=== PATIENT | female | born 1980 | race Caucasian/White ===

== ENCOUNTER 2022-01-02 06:56 | Emergency (ER) | payer OTHER ==
[~2022-01-02] VITALS: Ht 157.5 cm; Wt 60.4 kg
[2022-01-02] MEDS ORDERED: SODIUM BICARB ADULT 8.4% 50 MEQ/50 ML DISP.SYRIN. ONE (07:00)
[2022-01-02] MEDS ORDERED: EPINEPHrine SYRINGE 1 MG/10 ML SYRINGE. ONE (07:00)
[2022-01-02] MEDS ORDERED: CALCIUM CHLORIDE 1,000 MG/10 ML DISP.SYRIN ONE (07:00)
[2022-01-02] MEDS ORDERED: AMIODARONE 150 MG/3 ML VIAL ONE (07:00)
[2022-01-02 07:19] LABS: BASE EXCESS COOX -12 mmol/L (-3-3); HCO3 COOX 15 mmol/L (21-28); METHEMOGLOBIN 0.5 % (0.0-1.9); OXYHEMOGLOBIN 87.5 %; PCO2 COOX 42 mmHg (35-46); PO2 COOX 69 mmHg (75-108); SAT O2 COOX 88 % (92-99)
[2022-01-02] MEDS ORDERED: VASOPRESSIN - VASOSTRICT 20 UNIT in IV DEXTROSE 5% 100ML 100 ML IV ONE (07:30)
[2022-01-02] MEDS ORDERED: AMIODARONE 450 MG in IV DEXTROSE 5% 250 ML IV ONE (07:30)
[2022-01-02 07:32] LABS: BASO # 0.1 x10^3/uL (0.0-0.2); BASO % 1 % (0-3); EOS # 0.1 x10^3/uL (0.0-0.7); EOS % 1 % (0-3); HEMATOCRIT 42.1 % (36.0-47.0); HEMOGLOBIN 13.8 g/dL (12.0-15.5); LYMPH # 5.6 x10^3/uL (1.0-4.8); LYMPH % 52 % (24-48); MEAN CORPUSCULAR HEMOGLOBIN 31 pg (25-35); MEAN CORPUSCULAR HGB CONC 33 g/dL (31-37); MEAN CORPUSCULAR VOLUME 93 fL (79-100); MONO # 0.4 x10^3/uL (0.0-1.1); MONO % 4 % (0-9); NEUT # 4.6 x10^3/uL (1.8-7.7); NEUT % 43 % (31-73); PLATELET COUNT 355 x10^3/uL (140-400); RED BLOOD COUNT 4.52 x10^6/uL (3.50-5.40); RED CELL DISTRIBUTION WIDTH 13.7 % (11.5-14.5); WHITE BLOOD COUNT 10.8 x10^3/uL (4.0-11.0)
[2022-01-02 07:39] LABS: PROTHROMBIN TIME PATIENT 16.8 SEC (11.7-14.0)
--- NOTE | 2022-01-02 07:39 | RAD ---
AP chest. HISTORY: Post code, intubated AP view was taken of the chest. Endotracheal tube is in good position. NG tube extends into the stoma ch. There is hazy lung disease most prominent in the left upper lobe from developing pulmonary edema although aspiration or pulmonary hemorrhage could have this pattern. There is no pneumothorax or pleu ral effusion. IMPRESSION: 1. Endotracheal tube in good position. 2. NG tube extends into the stomach. 3. Hazy mainly upper lobe lung disease possible pulmonary edema. Electronically signed by: Josh Mcbride MD (01/02/2022 7:37 AM) [facility]
[2022-01-02 07:42] LABS: CALCIUM 8.9 mg/dL (8.5-10.1); CREATININE 1.1 mg/dL (0.6-1.0); POTASSIUM 3.2 mmol/L (3.5-5.1)
--- NOTE | 2022-01-02 07:44 | ED.ADGEN ---
General Adult EDM: Chief Complaint: CPR/FULL ARREST HPI: HPI: Patient is a 41 year old female brought in by EMS for cardiac arrest. History provided by patient's that they were staying in a hotel room, he states he woke up when she was urinating on his leg and then started having seizure- like activity. Patient states he had tried to get her up but she was " weight" and put her on the ground to start CPR and called 911. He states she has a history of seizures as a child, but none recently. No significant medical history. Has a history of alcohol use but denies anything currently. Per EMS she was in [place] and they got ROSC after about 5 minutes but then lost pulses again just prior to arriving at the emergency department. He states that she was incontinent but did not vomit. He says that have the a.m. was the last time he saw her before he fell asleep and she had been acting normally. Denies any known history of head trauma. Review of Systems: Review of Systems: All other systems within normal limits except for as noted in the HPI Current Medications: Current Medications Medications (Trade) Dose Ordered Sig/Abdiaziz Start Time Stop Time Status Last Admin Dose Admin Amiodarone HCl 450 mg/Dextrose 259 ml @ 33 mls/hr 1X ONCE 01/02/22 07:30 01/02/22 15:20 01/02/22 07:51 34.533 MLS/HR Info (CONTRAST GIVEN -- Rx MONITORING) 1 each PRN DAILY PRN 01/02/22 08:45 01/04/22 08:44 Iohexol (Omnipaque 300 Mg/ml) 75 ml 1X ONCE 01/02/22 08:30 01/02/22 08:31 DC 01/02/22 08:42 75 ML Lorazepam (Ativan Inj) 4 mg 1X ONCE 01/02/22 08:45 01/02/22 08:46 DC 01/02/22 08:38 4 MG Magnesium Sulfate/ Dextrose 100 ml @ 100 mls/hr 1X ONCE 01/02/22 07:45 01/02/22 08:44 DC 01/02/22 08:31 100 MLS/HR Propofol (Diprivan) 200 mg 1X ONCE 01/02/22 09:15 01/02/22 09:16 DC 01/02/22 09:17 200 MG Ringer's Solution 1,000 ml @ 200 mls/hr 1X ONCE 01/02/22 08:15 01/02/22 13:14 Sodium Chloride 500 ml @ 50 mls/hr 1X ONCE 01/02/22 09:00 01/02/22 18:59 01/02/22 08:53 50 MLS/HR Vasopressin 20 unit/Dextrose 101 ml @ 11.882 mls/ hr 1X ONCE 01/02/22 07:30 01/02/22 15:59 01/02/22 07:23 11.882 MLS/HR Allergies: Allergies: Allergies Coded Allergies Type Severity Reaction Last Updated Verified No Known Drug Allergies 01/02/22 No Physical Exam: PE: Constitutional: Well developed, well nourished HENT: Normocephalic, bilateral external ears normal, nose normal, ecchymosis and swelling of left upper orbit. [] Eyes: Pupils 4 mm and fixed conjunctiva normal, no discharge. [] Neck: No rigidity, supple, no stridor. [] Cardiovascular: Cardiac arrest, ongoing CPR Lungs & Thorax: Coarse bilateral breath sounds, arrived being ventilated by BVM Abdomen: Soft, nondistended. Skin: Warm, dry, no erythema, no rash. [] Back: Unremarkable Extremities: No deformities, no lower extremity edema [] Neurologic: GCS 3 Psychologic: Unable to assess Current Patient Data: Labs: Laboratory Tests Test 01/02/22 07:11 01/02/22 07:15 01/02/22 07:40 01/02/22 07:48 O2 Saturation 88 % (92-99) L Arterial Blood pH 7.18 (7.35-7.45) *L Arterial Blood pCO2 at Patient Temp 42 mmHg (35-46) Arterial Blood pO2 at Patient Temp 69 mmHg (75-108) L Arterial Blood HCO3 15 mmol/L (21-28) L Arterial Blood Base Excess -12 mmol/L (-3-3) L Oxyhemoglobin 87.5 % Methemoglobin 0.5 % (0.0-1.9) Carbon Monoxide, Quantitative 0.3 % (0.0-1.9) FiO2 100% vent White Blood Count 10.8 x10^3/uL (4.0-11.0) Red Blood Count 4.52 x10^6/uL (3.50-5.40) Hemoglobin 13.8 g/dL (12.0-15.5) Hematocrit 42.1 % (36.0-47.0) Mean Corpuscular Volume 93 fL (79-100) Mean Corpuscular Hemoglobin 31 pg (25-35) Mean Corpuscular Hemoglobin Concent 33 g/dL (31-37) Red Cell Distribution Width 13.7 % (11.5-14.5) Platelet Count 355 x10^3/uL (140-400) Neutrophils (%) (Auto) 43 % (31-73) Lymphocytes (%) (Auto) 52 % (24-48) H Monocytes (%) (Auto) 4 % (0-9) Eosinophils (%) (Auto) 1 % (0-3) Basophils (%) (Auto) 1 % (0-3) Neutrophils # (Auto) 4.6 x10^3/uL (1.8-7.7) Lymphocytes # (Auto) 5.6 x10^3/uL (1.0-4.8) H Monocytes # (Auto) 0.4 x10^3/uL (0.0-1.1) Eosinophils # (Auto) 0.1 x10^3/uL (0.0-0.7) Basophils # (Auto) 0.1 x10^3/uL (0.0-0.2) Platelet Estimate Pending Prothrombin Time 16.8 SEC (11.7-14.0) H Prothrombin Time INR 1.4 (0.8-1.1) H Sodium Level 139 mmol/L (136-145) Potassium Level 3.2 mmol/L (3.5-5.1) L Chloride Level 101 mmol/L (98-107) Carbon Dioxide Level 21 mmol/L (21-32) Anion Gap 17 (6-14) H Blood Urea Nitrogen 13 mg/dL (7-20) Creatinine 1.1 mg/dL (0.6-1.0) H Estimated GFR (Cockcroft-Gault) 55.0 BUN/Creatinine Ratio 12 (6-20) Glucose Level 150 mg/dL (70-99) H Lactic Acid Level 7.2 mmol/L (0.4-2.0) *H Calcium Level 8.9 mg/dL (8.5-10.1) Phosphorus Level 8.0 mg/dL (2.6-4.7) H Magnesium Level 3.0 mg/dL (1.8-2.4) H Total Bilirubin 0.8 mg/dL (0.2-1.0) Aspartate Amino Transferase (AST) 112 U/L (15-37) H Alanine Aminotransferase (ALT) 112 U/L (14-59) H Alkaline Phosphatase 66 U/L (46-116) Troponin I High Sensitivity 45 ng/L (4-50) AQ-Cik-E-Type Natriuretic Peptide 632 pg/mL (0-124) H Total Protein 7.6 g/dL (6.4-8.2) Albumin 4.2 g/dL (3.4-5.0) Albumin/Globulin Ratio 1.2 (1.0-1.7) Ethyl Alcohol Level < 10 mg/dL (0-10) Urine Collection Type Unknown Urine Color Straw Urine Clarity Clear Urine pH 7.0 (<5.0-8.0) Urine Specific [place] 1.020 (1.000-1.030) Urine Protein 100 mg/dL (NEG-TRACE) Urine Glucose (UA) 100 mg/dL (NEG) Urine Ketones (Stick) Trace mg/dL (NEG) Urine Blood Moderate (NEG) Urine Nitrite Negative (NEG) Urine Bilirubin Negative (NEG) Urine Urobilinogen Dipstick 0.2 mg/dL (0.2 mg/dL) Urine Leukocyte Esterase Negative (NEG) Urine RBC 6-10 /HPF (0-2) Urine WBC 0 /HPF (0-4) Urine Squamous Epithelial Cells Few /LPF Urine Bacteria Few /HPF (0-FEW) Urine Opiates Screen Neg (NEG) Urine Methadone Screen Neg (NEG) Urine Barbiturates Neg (NEG) Urine Phencyclidine Screen Neg (NEG) Urine Amphetamine/Methamphetamine Neg (NEG) Urine Benzodiazepines Screen Neg (NEG) Urine Cocaine Screen Pos (NEG) Urine Cannabinoids Screen Neg (NEG) Urine Ethyl Alcohol Neg (NEG) POC Urine HCG, Qualitative Hcg negative (Negative) Laboratory Tests 01/02/22 07:15 Laboratory Tests 01/02/22 07:15 Vital Signs: Vital Signs Date Time Temp Pulse Resp B/P (MAP) Pulse Ox O2 Delivery O2 Flow Rate FiO2 01/02/22 08:56 98 Ventilator EKG: EK: Sinus tachycardia, heart rate 150 bpm, right axis deviation, lateral and anterior settable demand ischemia. 0743: Sinus tachycardia, PACs deviation, narrow complexes, resolution of ST depression [] Heart Score: C/O Chest Pain: N/A Risk Factors: Risk Factors: DM, Current or recent (<one month) smoker, HTN, HLP, family history of CAD, obesity. Risk Scores: Score 0 - 3: 2.5% MACE over next 6 weeks - Discharge Home Score 4 - 6: 20.3% MACE over next 6 weeks - Admit for Clinical Observation Score 7 - 10: 72.7% MACE over next 6 weeks - Early Invasive Strategies Radiology/Procedures: Radiology/Procedures: [facility] [address] [place] [address] IMAGING REPORT Signed PATIENT: BERTA ENGLAND ACCOUNT: [id number] : 1980 LOCATION: ER AGE: 41 SEX: F EXAM STATUS: PRE ER ORD. PHYSICIAN: YASMIN TURNER DO REASON: post code, intubation PROCEDURE: PORTABLE CHEST 1V AP chest. HISTORY: Post code, intubated AP view was taken of the chest. Endotracheal tube is in good position. NG tube extends into the stomach. There is hazy lung disease most prominent in the left upper lobe from developing pulmonary edema although aspiration or pulmonary hemorrhage could have this pattern. There is no pneumothorax or pleural effusion. IMPRESSION: 1. Endotracheal tube in good position. 2. NG tube extends into the stomach. 3. Hazy mainly upper lobe lung disease possible pulmonary edema. Electronically signed by: Josh Mcbride MD (01/02/2022 7:37 AM) [facility] DICTATED and SIGNED BY: JOSH MCBRIDE MD DATE: 01/02/22 0735 [][facility] [id number] [place] [address] IMAGING REPORT Signed PATIENT: BERTA CRAIN ACCOUNT: [id number] : 1980 LOCATION: ER AGE: 41 SEX: F EXAM STATUS: REG ER ORD. PHYSICIAN: LIBBY DURAN MD REASON: cardiac arrest, head injury PROCEDURE: CT HEAD WO CONTRAST PQRS Compliance Statement: One or more of the following individualized dose reduction techniques were utilized for this examination: 1. Automated exposure control 2. Adjustment of the mA and/or kV according to patient size 3. Use of iterative reconstruction technique CT head without contrast 01/02/2022 8:10 AM INDICATION: Cardiac arrest, head injury COMPARISON: None available TECHNIQUE: Multiple axial CT images of the head were obtained from skull base through the vertex without intravenous contrast. FINDINGS: Head: There is diffuse subarachnoid hemorrhage identified along the midline falx in the suprasellar cistern, and bilateral sylvian fissures. There is intraventricular hemorrhage identified within the fourth ventricle. The occipital horns of the lateral ventricles appear effaced. No definite hydrocephalus. There is diffuse cerebral edema with effacement of the sulci which could result in pseudosubarachnoid hemorrhage. The tonsils extend below the level of foramen magnum by 6 mm suggestive of tonsillar herniation. No significant midline shift. Visualized portions of the orbits are normal. Mild mucosal thickening of the maxillary sinuses. Moderate mucosal thickening of the ethmoid air cells and right sphenoid sinus. Middle ear cavities are intact. Mastoid air cells are well aerated. Scalp and calvaria are normal. IMPRESSION: Diffuse subarachnoid hemorrhage with intraventricular hemorrhage, Garcia grade 4. No associated hydrocephalus. Findings favor aneurysmal subarachnoid hemorrhage and further evaluation with CT angiography or catheter angiography is recommended. Diffuse cerebral edema with sulcal effacement and cerebellar tonsillar herniation. Degree of sulcal effacement and effacement of the basal cisterns could result in a pseudosubarachnoid hemorrhage appearance, although degree of hyperattenuation within the sylvian fissures and suprasellar cistern favors aneurysmal subarachnoid hemorrhage. FOR INTERNAL CODING PURPOSES Critical result: Findings discussed with LIBBY DURAN MD at 01/02/2022 8:23 AM. RESULT CODE: (C) Electronically signed by: Mik Jones MD (01/02/2022 8:32 AM) [id number] DICTATED and SIGNED BY: MIK JONES MD DATE: 01/02/22 0822 [facility] [address] [place] [address] IMAGING REPORT Signed PATIENT: BERTA CRAIN ACCOUNT: [id number] : 1980 LOCATION: ER AGE: 41 SEX: F EXAM STATUS: REG ER ORD. PHYSICIAN: LIBBY DURAN MD REASON: SAH PROCEDURE: CT ANGIOGRAPHY HEAD AND NECK CTA HEAD AND NECK W/WO CONTRAST History:Reason: SAH / Spl. Instructions: omni 300 75ml / History: Technique: After bolus of intravenous contrast, volumetric CT data acquisition was acquired of the head and neck. Multiplanar reconstruction images to include MIP and 3-D reconstruction images are submitted. Exposure: One or more of the following individualized dose reduction techniques were utilized for this examination: 1. Automated exposure control 2. Adjustment of the mA and/or kV according to patient size 3. Use of iterative reconstruction technique. Comparison: January 02, 2022 Any determination of stenosis is based on NASCET criteria. Head CTA: ICA: No stenosis or occlusion. Tiny right posterior communicating artery origin infundibulum or aneurysm. MCA: No stenosis, occlusion or aneurysm. DELVIS: Anterior communicating artery aneurysm measures 4.3 mm. ELEVATOR ADJUSTER: No stenosis, occlusion or aneurysm. Basilar artery: No stenosis, occlusion or aneurysm. Fenestrated basilar artery. Distal vertebral arteries: No stenosis, occlusion or aneurysm. Diffuse subarachnoid hemorrhage with cerebral edema and herniation better characterized on noncontrast examination. CT angiogram neck: Aortic arch: Conventional arch anatomy. Common carotid arteries: No stenosis, occlusion or dissection. Internal carotid arteries: No stenosis, occlusion or dissection. External carotid arteries: Patent Vertebral arteries: No stenosis, occlusion or dissection. Multifocal ground glass opacities and patchy opacities with centrilobular distribution bilaterally. Endotracheal and enteric tubes noted. Soft tissues appear normal. Bones: Congenital fusion T2-T3. Mild cervical spondylosis. Impression: 1. 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 2. Tiny internal carotid artery posterior communicating artery origin aneurysm or infundibulum. 3. Bilateral pulmonary patchy opacities and groundglass opacities, may represent pulmonary edema or pneumonia. FOR INTERNAL CODING PURPOSES Critical result: Findings discussed with LIBBY DURAN MD at 01/02/2022 9:13 AM. RESULT CODE: (C) Electronically signed by: Raf Ricketts DO (01/02/2022 9:19 AM) [id number] DICTATED and SIGNED BY: RAF RICKETTS DO DATE: 01/02/2204 Impression: Total critical care time: 90 The time involved in the performance of separately reportable/billable procedures was not counted toward critical care time. Due to a high probability of clinically significant, life-threatening deterioration the patient required a high level of care to intervene emergently and I personally spent this critical time directly and personally managing the patient. The critical care time included obtaining a history, examination of the patient, assessment of vital signs, ordering and review of studies, arranging urgent treatment with development of a management plan, evaluation of patient's response to treatment, frequent reassessment, and discussions with other providers and/or family members. Patient was intubated in emergent fashion and no consent was obtained. Patient was not sedated and paralyzed []. A glide scope with a size 3 blade was used, cords were visualized and a size 7.0 endotracheal tube was placed during for attempt. Endotracheal tube cuff was inflated and confirmation established by visualization of the cords passing the tubes, bilateral breath sounds, color change, and chest x-ray. Patient initially came in in cardiac arrest receiving CPR. Obtained ROSC. Patient was initially tachycardic and hypotensive, started on norepinephrine and given bicarb and calcium. Given amiodaron for arrhythmias, magnesium for QT prolongation. Patient stabilized and taken to CT, identified subarachnoid hemorrhage, per radiologist good benefit from a CT aneurysm. Do not have neurosurgery in this facility nor neuro IR, contacted [facility] and they will accept the patient to the [facility] as an ER staff. Neurosurgeon discussed poor prognosis at that time. Course & Med Decision Making: Course & Med Decision Making Pertinent Labs and Imaging studies reviewed. (See chart for details) [] Marilou Disclaimer: Dragon Disclaimer: This electronic medical record was generated, in whole or in part, using a voice recognition dictation system. Departure Departure Impression: Primary Impression: Cardiopulmonary arrest Additional Impression: Ruptured aneurysm of anterior communicating artery Disposition: 02 SHORT TERM HOSPITAL Condition: CRITICAL Problem Qualifiers LIBBY DURAN MD Jan 02, 2022 07:44
[2022-01-02] MEDS ORDERED: MAGNESIUM SULFATE 1GM 100 ML IV ONE (07:45)
[2022-01-02 07:55] LABS: ALBUMIN 4.2 g/dL (3.4-5.0); ALBUMIN/GLOBULIN RATIO 1.2 (1.0-1.7); TOTAL BILIRUBIN 0.8 mg/dL (0.2-1.0); TOTAL PROTEIN 7.6 g/dL (6.4-8.2)
[2022-01-02 08:09] LABS: BARBITURATES NEG (NEG); BENZODIAZEPINES NEG (NEG); CANNABINOIDS NEG (NEG); COCAINE POS (NEG); METHADONE NEG (NEG); OPIATES NEG (NEG); PHENCYCLIDINE NEG (NEG)
[2022-01-02 08:10] LABS: AMPHETAMINE/METHAMPHETAMINE NEG (NEG)
[2022-01-02] MEDS ORDERED: IV RINGERS,LACTATED 1000ML 1,000 ML IV ONE (08:15)
[2022-01-02 08:16] LABS: BILIRUBIN,URINE NEGATIVE (NEG); CLARITY,URINE CLEAR; COLOR,URINE STRAW; NITRITE,URINE NEGATIVE (NEG); PROTEIN,URINE 100 mg/dL (NEG-TRACE); UROBILINOGEN,URINE 0.2 mg/dL (0.2 mg/dL)
[2022-01-02 08:18] LABS: BACTERIA,URINE FEW /HPF (0-FEW); WBC,URINE 0 /HPF (0-4)
[2022-01-02] MEDS ORDERED: IOHEXOL 300 MG/ML 100ML VIAL. IV ONE (08:30)
--- NOTE | 2022-01-02 08:34 | RAD ---
PQRS Compliance Statement: One or more of the following individualized dose reduction techniques were utilized for this examinat ion: 1. Automated exposure control 2. Adjustment of the mA and/or kV according to patient size 3. Use of iterative reconstruction technique CT head without contrast 01/02/2022 8:10 AM INDICATION: Cardiac arrest, head injury COMPARISON: None available TECHNIQUE: Multiple axial CT images of the head were obtained from skull base through the vertex with out intravenous contrast. FINDINGS: Head: There is diffuse subarachnoid hemorrhage identified along the midline falx in the suprasellar cistern , and bilateral sylvian fissures. There is intraventricular hemorrhage identified within the fourth v entricle. The occipital horns of the lateral ventricles appear effaced. No definite hydrocephalus. Th ere is diffuse cerebral edema with effacement of the sulci which could result in pseudosubarachnoid h emorrhage. The tonsils extend below the level of foramen magnum by 6 mm suggestive of tonsillar herni ation. No significant midline shift. Visualized portions of the orbits are normal. Mild mucosal thickening of the maxillary sinuses. Moder ate mucosal thickening of the ethmoid air cells and right sphenoid sinus. Middle ear cavities are int act. Mastoid air cells are well aerated. Scalp and calvaria are normal. IMPRESSION: Diffuse subarachnoid hemorrhage with intraventricular hemorrhage, Garcia grade 4. No associated hydro cephalus. Findings favor aneurysmal subarachnoid hemorrhage and further evaluation with CT angiograph y or catheter angiography is recommended. Diffuse cerebral edema with sulcal effacement and cerebellar tonsillar herniation. Degree of sulcal e ffacement and effacement of the basal cisterns could result in a pseudosubarachnoid hemorrhage appear ance, although degree of hyperattenuation within the sylvian fissures and suprasellar cistern favors aneurysmal subarachnoid hemorrhage. FOR INTERNAL CODING PURPOSES Critical result: Findings discussed with LIBBY DURAN MD at 01/02/2022 8:23 AM. RESULT CODE: (C) Electronically signed by: Che Frederick MD (01/02/2022 8:32 AM) [id number]
[2022-01-02] MEDS ORDERED: CONTRAST GIVEN. MC PRN (08:45)
[2022-01-02] MEDS ORDERED: SODIUM CHLORIDE 3 % 500 ML IV ONE (09:00)
[2022-01-02] MEDS ORDERED: PROPOFOL 10 MG/ML (20ML) VIAL. IV ONE (09:15)
--- NOTE | 2022-01-02 09:22 | RAD ---
CTA HEAD AND NECK W/WO CONTRAST History:Reason: SAH / Spl. Instructions: omni 300 75ml / History: Technique: After bolus of intravenous contrast, volumetric CT data acquisition was acquired of the he ad and neck. Multiplanar reconstruction images to include MIP and 3-D reconstruction images are submi tted. Exposure: One or more of the following individualized dose reduction techniques were utilized for thi s examination: 1. Automated exposure control 2. Adjustment of the mA and/or kV according to patient size 3. Use of iterative reconstruction technique. Comparison: January 02, 2022 Any determination of stenosis is based on NASCET criteria. Head CTA: ICA: No stenosis or occlusion. Tiny right posterior communicating artery origin infundibulum or aneurysm. MCA: No stenosis, occlusion or aneurysm. DELVIS: Anterior communicating artery aneurysm measures 4.3 mm. FREELANCE DIRECTOR: No stenosis, occlusion or aneurysm. Basilar artery: No stenosis, occlusion or aneurysm. Fenestrated basilar artery. Distal vertebral arteries: No stenosis, occlusion or aneurysm. Diffuse subarachnoid hemorrhage with cerebral edema and herniation better characterized on noncontras t examination. CT angiogram neck: Aortic arch: Conventional arch anatomy. Common carotid arteries: No stenosis, occlusion or dissection. Internal carotid arteries: No stenosis, occlusion or dissection. External carotid arteries: Patent Vertebral arteries: No stenosis, occlusion or dissection. Multifocal ground glass opacities and patchy opacities with centrilobular distribution bilaterally. E ndotracheal and enteric tubes noted. Soft tissues appear normal. Bones: Congenital fusion T2-T3. Mild cervical spondylosis. Impression: 1. 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 2. Tiny internal carotid artery posterior communicating artery origin aneurysm or infundibulum. 3. Bilateral pulmonary patchy opacities and groundglass opacities, may represent pulmonary edema or pneumonia. FOR INTERNAL CODING PURPOSES Critical result: Findings discussed with LIBBY DURAN MD at 01/02/2022 9:13 AM. RESULT CODE: (C) Electronically signed by: Raf Ricketts DO (01/02/2022 9:19 AM) [id number]
[2022-01-02 09:36] LABS: INFLUENZA A PATIENT NEGATIVE (NEGATIVE); INFLUENZA B PATIENT NEGATIVE (NEGATIVE)
[2022-01-02 09:58] VITALS: BP 158/124
--- NOTE | 2022-01-02 10:34 | EKG ---
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
[2022-01-02 11:43] LABS: % ATYL 5 % (0-0); % EOS 1 % (0-5); % LYMPHS 53 % (24-48); % MONOS 1 % (0-10); % SEGS 40 % (35-66); PLT ESTIMATE ADEQUATE (ADEQUATE)
[2022-01-02] MEDS ORDERED: IV NORMAL SALINE 1000ML BAG 1,000 ML IV ONE (20:45)
--- NOTE | 2022-01-04 06:10 | EKG ---
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
== END 2022-01-02 09:58 | disposition short-term general hospital (02) ==
LOC: ER 06:56
DX: I46.9 Cardiac arrest, cause unspecified (principal); I60.2 Nontraumatic subarachnoid hemorrhage from anterior communicating artery; Z20.822 Contact with and (suspected) exposure to COVID-19
CPT/HCPCS: 31500; 36415; 36600; 51702; 70450; 70496; 70498; 71045; 80053; 80307; 81001; 81025; 82805; 83605; 83735; 83880; 84100; 84484; 85007; 85025; 85610; 87040; 87077; 87186; 87428; 92950; 93005; 96361; 96365; 96368; 96375; 99291; 99292; C9803; G0480; J0171; J0282; J2060; J2704; J3475; J3490; J7030; J7060; Q9967; U0003; 94002